=== PATIENT | male | born 1985 | race Caucasian/White ===

== ENCOUNTER 2019-02-06 09:26 | Emergency (ER) | payer BC ==
[2019-02-06 09:48] VITALS: BP 108/86; PULSE 55
[2019-02-06] MEDS ORDERED: Ketorolac 60 MG/2 ML SDV IM ONE (10:13)
[2019-02-06] MEDS ORDERED: methylPREDNISolone Sodium Succinate 125 MG/2 ML SDV IM ONE (10:13)
--- NOTE | 2019-02-06 10:16 | EDM.PDOC ---
ED HPI GENERAL MEDICAL PROBLEM - General Chief Complaint: Neck Problem Stated Complaint: NECK PAIN Time Seen by Provider: 02/06/19 09:58 Source of Information: Reports: Patient History Limitations: Reports: No Limitations - History of Present Illness INITIAL COMMENTS - FREE TEXT/NARRATIVE: HISTORY AND PHYSICAL: History of present illness: Patient is a 33-year-old male who presents to the emergency room with complaints of neck pain. He states approximately a month and a half to 2 months ago he was doing an overhead press with heavy weight when he developed muscular neck pain. Initially it was just on the right side which should cause pain with movement of the shoulder or turning of his neck. He has been seeing a chiropractor who ordered an MRI which was done on 01/29/19. He states he has been just taking ibuprofen and getting adjustments by the chiropractor, which has provided some relief but he is now having pain on both sides of the neck. He denies any injury, trauma or falls. He denies any change in vision, fevers, numbness or tingling to the distal extremities, urinary or fecal incontinence. Review of systems: As per history of present illness and below otherwise all systems reviewed and negative. Past medical history: As per history of present illness and as reviewed below otherwise noncontributory. Surgical history: As per history of present illness and as reviewed below otherwise noncontributory. Social history: See social history for further information Family history: As per history of present illness and as reviewed below otherwise noncontributory. Physical exam: General: Well-developed and well-nourished 33-year-old male. Alert and oriented. Nontoxic appearing and in no acute distress. HEENT: Atraumatic, normocephalic, pupils equal and reactive bilaterally, negative for conjunctival pallor or scleral icterus, mucous membranes moist, TMs normal bilaterally, throat clear, neck supple, nontender, trachea midline. No drooling or trismus noted. No meningeal signs. No hot potato voice noted. Lungs: Clear to auscultation, breath sounds equal bilaterally, chest nontender. Heart: S1S2, regular rate and rhythm without overt murmur Abdomen: Soft, nondistended, nontender. Negative for masses or hepatosplenomegaly. Negative for costovertebral tenderness. Pelvis: Stable nontender. Skin: Intact, warm, dry. No lesions or rashes noted. Extremities: Atraumatic, moves all extremities per self without difficulty or deficits. Patient does have full range of motion of the head and neck and is able to move side to side although this does cause trapezius muscular tension bilaterally. He has no upper or lower extremity weakness or deficits. Equal furnace keeper strength bilaterally. Neurovascular unremarkable. Neuro: Awake, alert, oriented. Cranial nerves II through XII unremarkable. Cerebellum unremarkable. Motor and sensory unremarkable throughout. Exam nonfocal. Notes: Patient had an MRI on 01/29/19 at [facility]. There is multi- level degenerative disc disease as well as nonspecific reversal of the expected lordotic curvature of the cervical spine. The most prominent changes are C5-6 were appreciated at least moderate neural foraminal stenosis due to bulging disc and spondylolisthesis. Patient states he has not had any prescribed medications for this. We will do a steroid and muscle relaxer. I did encourage him to follow up with the primary care provider to have this further evaluated and managed. We discussed that he may need further intervention if pain continues. Supportive care measures were reviewed and discussed. Voices understanding and is agreeable to plan of care. Denies any further questions or concerns at this time. Diagnostics: None Therapeutics: Solu-Medrol, Toradol Prescription: Flexeril Medrol Dosepak Impression: Degenerative disc disease, cervical Cervical muscular strain Plan: 1. When resting please lay on a flat firm surface. Limit your immobility to prevent muscle stiffness. Get up to ambulate/move around/gentle stretching multiple times throughout the day. May alternate heat and ice to the painful areas 2. Please continue to routinely take the ibuprofen as directed with food. Otherwise take the prescribed Flexeril and medrol dosepak (steroid) as directed. Flexeril as a muscle relaxant, this medication may cause drowsiness a do not take it will driving her needing to be functioning outside of the house. 3. Please follow-up with your primary care provider as we discussed. Return to the ED as needed and as discussed. Definitive disposition and diagnosis as appropriate pending reevaluation and review of above. Neck Pain Score (Numeric/FACES): 6 - Related Data Allergies Allergy/AdvReac Type Severity Reaction Status Date / Time No Known Allergies Allergy Verified 02/06/19 09:51 Home Meds: Home Meds . [No Known Home Meds] 02/06/19 [History] Past Medical History - Past Health History Medical/Surgical History: Denies Medical/Surgical History HEENT History: Reports: None Cardiovascular History: Reports: None Respiratory History: Reports: None Genitourinary History: Reports: None - Infectious Disease History Infectious Disease History: Reports: Chicken Pox - Past Surgical History GI Surgical History: Reports: Appendectomy Other Musculoskeletal Surgeries/Procedures:: neck pain and left thumb Social & Family History - Family History Family Medical History: Noncontributory - Tobacco Use Years of Tobacco use: 13 Packs/Tins Daily: 1 - Caffeine Use Caffeine Use: Reports: None Caffeine Use Comment: 6cups/day - Recreational Drug Use Recreational Drug Use: No ED ROS GENERAL - Review of Systems Review Of Systems: ROS reveals no pertinent complaints other than HPI. ED EXAM, UPPER BACK/NECK PAIN - Physical Exam Exam: See Below (See dictation) Course - Vital Signs Last Recorded V/S: Last Vital Signs Temp 96.5 F 02/06/19 09:47 Pulse 55 L 02/06/19 09:47 Resp 18 02/06/19 09:47 BP 108/86 02/06/19 09:47 Pulse Ox 98 02/06/19 09:47 - Orders/Labs/Meds Meds: Medications Discontinued Medications Generic Name Dose Route Start Last Admin Trade Name [place] PRN Reason Stop Dose Admin Ketorolac Tromethamine 60 mg 02/06/19 10:13 02/06/19 10:23 Toradol IM 02/06/19 10:14 60 mg ONETIME ONE Administration Methylprednisolone Sodium Succinate 125 mg 02/06/19 10:13 02/06/19 10:23 Solu-Medrol IM 02/06/19 10:14 125 mg ONETIME ONE Administration Departure - Departure Time of Disposition: 10:27 Disposition: Home, Self-Care 01 Clinical Impression: Muscle strain Degenerative disc disease Qualifiers: Spinal region: mid-cervical Mid-cervical spinal level: C5-C6 Qualified Code(s) : M50.322 - Other cervical disc degeneration at C5-C6 level - Discharge Information Instructions: Cervical Sprain, [id number] Referrals: PCP,None [Primary Care Provider] - Forms: ED Department Discharge Additional Instructions: The following information is given to patients seen in the emergency department who are being discharged to home. This information is to outline your options for follow-up care. We provide all patients seen in our emergency department with a follow-up referral. The need for follow-up, as well as the timing and circumstances, are variable depending upon the specifics of your emergency department visit. If you don't have a primary care physician on staff, we will provide you with a referral. We always advise you to contact your personal physician following an emergency department visit to inform them of the circumstance of the visit and for follow-up with them and/or the need for any referrals to a consulting specialist. The emergency department will also refer you to a specialist when appropriate. This referral assures that you have the opportunity for follow-up care with a specialist. All of these measure are taken in an effort to provide you with optimal care, which includes your follow-up. Under all circumstances we always encourage you to contact your private physician who remains a resource for coordinating your care. When calling for follow-up care, please make the office aware that this follow-up is from your recent emergency room visit. If for any reason you are refused follow-up, please contact the [facility] Emergency Department at and asked to speak to the emergency department charge nurse. [facility] [address] [place] [address] [facility] [address] [place] [id number] 1. When resting please lay on a flat firm surface. Limit your immobility to prevent muscle stiffness. Get up to ambulate/move around/gentle stretching multiple times throughout the day. May alternate heat and ice to the painful areas 2. Please continue to routinely take the ibuprofen as directed with food. Otherwise take the prescribed Flexeril and medrol dosepak (steroid) as directed. Flexeril as a muscle relaxant, this medication may cause drowsiness a do not take it will driving her needing to be functioning outside of the house. 3. Please follow-up with your primary care provider as we discussed. Return to the ED as needed and as discussed.
== END 2019-02-06 10:47 | disposition home or self-care (01) ==
LOC: MW.ED 09:26
DX: S16.1XXA Strain of muscle, fascia and tendon at neck level, initial encounter (principal); M50.322 Other cervical disc degeneration at C5-C6 level; F17.210 Nicotine dependence, cigarettes, uncomplicated; Z90.49 Acquired absence of other specified parts of digestive tract; X50.0XXA Overexertion from strenuous movement or load, initial encounter
CPT/HCPCS: 96372; 99283; J1885; J2930

== ENCOUNTER 2022-04-08 13:21 | Emergency (ER) | payer BC, OTHER ==
[2022-04-08 13:56] VITALS: PULSE 67
[2022-04-08 14:49] VITALS: BP 112/61
== END 2022-04-08 14:34 | disposition home or self-care (01) ==
LOC: MW.ED 13:21
DX: H81.11 Benign paroxysmal vertigo, right ear (principal); F17.210 Nicotine dependence, cigarettes, uncomplicated
CPT/HCPCS: 99283